=== PATIENT | female | born 1995 | race Hispanic/Latino ===

== ENCOUNTER 2017-12-28 09:54 | Outpatient (CLI) | payer BC, MEDICAID ==
--- NOTE | 2017-12-28 12:19 | Event Note ---
Date: 12/28/17 Presents with decreased FM. AKHIL and bpp are normal. d/c home with f/u in the office. Movement noted by RN in triage also.
--- NOTE | 2017-12-28 14:48 | Ultrasound Report ---
ULTRASOUND OB LIMITED History: Decreased movement Technique: Transabdominal ultrasound with Doppler interrogation. Gestation: Single Position: Cephalic Amniotic Fluid: Normal AKHIL = 16.8 cm Heart Rate: 143 BPM
--- NOTE | 2017-12-28 14:49 | Ultrasound Report ---
ULTRASOUND BIOPHYSICAL PROFILE: History: well being Technique: Transabdominal ultrasound with Doppler interrogation. 2 - breathing movements 2 - movements 2 - posture and tone 2 - Qualitative amniotic fluid volume 8 - TOTAL SCORE OF POSSIBLE 8 Heart Rate (bpm) 141
== END 2017-12-28 12:39 | disposition home or self-care (01) ==
LOC: TRG 09:54 → LD 09:55 → TRG 12:39
PROVIDERS: ATTEND Obstetrics & Gynecology
DX: O47.1 False labor at or after 37 completed weeks of gestation (principal); Z3A.39 39 weeks gestation of pregnancy
CPT/HCPCS: 59025; 76815; 76819

== ENCOUNTER 2017-12-28 21:28 | Inpatient (IN) | payer BC, MEDICAID ==
--- NOTE | 2017-12-28 22:18 | History and Physical Report ---
History of Present Illness Date of examination: 12/28/17 Date of admission: 12/28/17 21:53 Chief complaint: my water broke History of present illness: Pt seen earlier today for decreased FM. Pt had reassuring testing and sent home. Now pt presents with c/o SROm 1930pm with clear fluid noted. Pt also noted to be 4cm as per triage nurse. EDC Confirmation: 01/04/2018 Gestational Age: 8 weeks Past History : 1 Term Births: 0 Past Medical History: Reviewed history from 10/23/2014 and no changes required: Depression Bipolar Disease; patient stopped all meds after + test. Dr. Collins in [place] Past Surgical History: Reviewed history from 08/15/2010 and no changes required: Negative Past Surgical History Past Medical History Abnormal PAP: negative REAL Exposure: negative Infertility: negative Uterine Anomaly: negative Uterine Surgery (not C/S): negative Other Gynecologic Problems: negative Social Hx: Smoker no ETOH/Drugs Patient is single Infection History Hx of STD: chlamydia HIV Risk Eval: no Hepatitis B Risk Eval: low risk Personal hx. of genital herpes: no Partner hx. of genital herpes: no Rash, Viral, or Febrile illness since last LMP? no Varicella/Chicken Pox Status: Previous Disease Genetic History Congenital Heart Defect: Mom: no Dad: no Kian Disease: Mom: no Dad: no Thalassemia Mom: no Dad: no Neural Tube Defect Mom: no Dad: no Down's Syndrome Mom: no Dad: no Nelson-Sachs Mom: no Dad: no Sickle Cell Disease/Trait Mom: no Dad: no Hemophilia Mom: no Dad: no Muscular Dystrophy Mom: no Dad: no Cystic Fibrosis Mom: no Dad: no Loup Chorea Mom: no Dad: no Mental Retardation Mom: no Dad: no Fragile X Mom: no Dad: no Other Genetic/Chromosomal Disorder Mom: no Dad: no Child w/other defect Mom: no Dad: no Enviromental Exposures Xray Exposure: no Medication, drug, or alcohol use since LMP: no Chemical/Other Exposure: no Exposure to Cat Liter: no Hx of Parvovirus (Fifth Disease): no Occupational Exposure to Children: none Active Medications (reviewed today): XANAX () LAMICTAL () CELEXA () Current Allergies (reviewed today): * CODEINE (Critical) Past History Past Medical History: no pertinent history Past Surgical History: no surgical 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 Social history: no significant social history, - Obstetrical History Expected Date of Delivery: 01/04/18 Actual Gestation: 39 Week(s) 0 Day(s) : 1 Medications and Allergies Allergies Allergy/AdvReac Type Severity Reaction Status Date / Time No Known Allergies Allergy Unverified 12/28/17 10:12 Home Medications Medication Instructions Recorded Confirmed Last Taken Type Ranitidine HCl [Zantac 150 MG TAB] 300 mg PO 12/28/17 12/28/17 10:00 History Review of Systems All systems: negative - Vital Signs Vital signs: Vital Signs Temp Pulse Resp BP Pulse Ox 98.3 F 118 H 20 122/86 96 12/28/17 22:04 12/28/17 22:04 12/28/17 22:04 12/28/17 22:04 12/28/17 22:04 Temp Pulse Resp BP Pulse Ox 98.3 F 118 H 20 122/86 96 12/28/17 22:04 12/28/17 22:04 12/28/17 22:04 12/28/17 22:04 12/28/17 22:04 - Obstetrical FHR: auscultation normal Cervical Dilatation: 4 (grossly SROM as per triage nurse) Cervical Effacement Percentage: 70 Uterine Contraction Frequency (min): -1 Results All other labs normal. Assessment and Plan - Patient Problems (1) 39 weeks gestation of Current Visit: Yes Status: Acute (2) Active labor at term Current Visit: Yes Status: Acute Plan to address problem: -admit -bolus for epidural as pt desires one -pitocin if needed -gbs negative (3) SROM (spontaneous rupture of membranes) Current Visit: Yes Status: Acute Plan to address problem: -admit -bolus for epidural as pt desires one -pitocin if needed -gbs negative
[2017-12-28] MEDS ORDERED: BRETHINE SUB-Q PRN ×2 (22:25→22:28)
[2017-12-28] MEDS ORDERED: ePHEDrine SULFATE IV PRN (22:25)
[2017-12-28] MEDS ORDERED: XYLOCAINE 2% INFILTRATI ONE ×2 (22:25→22:28)
[2017-12-28] MEDS ORDERED: SUBLIMAZE IV PRN (22:25)
[2017-12-28] MEDS ORDERED: BRETHINE IVP PRN (22:25)
[2017-12-28] MEDS ORDERED: MINERAL OIL PO PRN (22:25)
[2017-12-28] MEDS ORDERED: LACTATED RINGERS 1,000 ML ONE (22:26)
[2017-12-28 22:54] LABS: Hematocrit 37.4 % (30.3-42.9); Hemoglobin 12.6 gm/dl (10.1-14.3); Mean Corpuscular HGB Conc 34 % (30-34); Mean Corpuscular Hemoglobin 28 pg (28-32); Mean Corpuscular Volume 82 fl (79-97); Platelet Count 268 K/mm3 (140-440); Red Blood Count 4.55 M/mm3 (3.65-5.03); Red Cell Distribution Width 13.1 % (13.2-15.2)
[2017-12-28] MEDS ORDERED: PITOCin/NS 20 UNIT/1000ML DRIP 20 UNITS/1,000 ML BAG IV SCH (23:00)
[2017-12-28] MEDS ORDERED: PITOCin/NS 30 UNIT/500ML 30 UNITS/500 ML BAG IV SCH ×2 (23:00)
[2017-12-28] MEDS ORDERED: LACTATED RINGERS 1,000 ML IV SCH (23:00)
[2017-12-28] MEDS: LACTATED RINGERS 1,000 ML IV SCH ×2 (23:09→23:14)
[2017-12-29] MEDS ORDERED: NARCAN 2 MG/2 ML IV PRN (00:34)
[2017-12-29] MEDS ORDERED: ePHEDrine SULFATE IV PRN (00:34)
[2017-12-29] MEDS ORDERED: fentaNYL-BUPIV 2 MCG/ML-0.125% 200 MCG/100 ML BAG EPIDURAL SCH (01:00)
[2017-12-29] MEDS ORDERED: LACTATED RINGERS 1,000 ML IV SCH (01:00)
--- NOTE | 2017-12-29 05:43 | Progress Note ---
Assessment and Plan Pt reassured Will get epidural redosed Anesthesia called Continue pit @ 4mu Ctx Q2 FHR Cat 1. Anticipate delivery. Subjective - Subjective Date of service: 12/29/17 (pt called out c/o pressure) Principal diagnosis: IUP @ 39w1d with SROM; Patient reports: movement normal Objective - Vital Signs Vital Signs: Vital Signs - 12hr 12/28/17 12/29/17 22:04 00:45 Temperature 98.3 F Pulse Rate 118 H Respiratory 20 18 Rate Blood Pressure 140/72 Blood Pressure 122/86 [Right] O2 Sat by Pulse 96 Oximetry - Exam Breasts: deferred Cardiovascular: Regular rate Lungs: Normal air movement Abdomen: Present: normal appearance, soft. Absent: distention, tenderness Uterus: Present: normal FHR: auscultation normal, category 1 Uterine Contraction Monitor Mode: External Cervical Dilatation: 8.5 Cervical Effacement Percentage: 100 station: 0 Uterine Contraction Pattern: Regular Uterine Tone Measurement Phase: Resting Uterine Contraction Intensity: Moderate Extremities: normal Deep Tendon Reflex Grade: Normal +2 - Labs Labs: Abnormal Labs 12/28/17 22:38 RDW 13.1 L Laboratory Results - last 24 hr 12/28/17 12/28/17 22:38 22:38 WBC 10.3 RBC 4.55 Hgb 12.6 Hct 37.4 MCV 82 MCH 28 MCHC 34 RDW 13.1 L Plt Count 268 Blood Type B POSITIVE Antibody Screen Negative
[2017-12-29] MEDS ORDERED: ZOFRAN IV PRN (07:11)
[2017-12-29] MEDS ORDERED: BENADRYL PO PRN (07:11)
[2017-12-29] MEDS ORDERED: TUCKS PAD TP PRN (07:11)
[2017-12-29] MEDS ORDERED: MILK OF MAGNESIA PO PRN (07:11)
[2017-12-29] MEDS ORDERED: LANSINOH TP PRN (07:11)
[2017-12-29] MEDS ORDERED: DULCOLAX PR PRN (07:11)
[2017-12-29] MEDS ORDERED: PHENERGAN PO PRN (07:11)
[2017-12-29] MEDS ORDERED: TYLENOL PO PRN (07:11)
[2017-12-29] MEDS ORDERED: NORCO 5/325 PO PRN (07:11)
--- NOTE | 2017-12-29 07:18 | Procedure Note ---
OB Delivery Note - Delivery Date of Delivery: 12/29/17 Newspaper Subscription Solicitor: GERSON GUNDERSON Estimated blood loss: 300cc - Vaginal Delivery presentation: vertex Delivery position: OA Intrapartum events: none Delivery augmentation: rupture of membranes Delivery monitor: external FHT, external uterine Route of delivery: Delivery placenta: spontaneous Delivery cord: nuchal cord Delivery laceration: 1st degree (right labial tear No repair) Anesthesia: epidural Delivery comments: live born male over intact perineum Baby to mom's abdomen skin to skin Placenta and membrane delivered complete and intact. 3 vessel cord. Pitocin IVFs. 8/9, EBL 300, Wgt 7-6. Mom and baby remain LDR stable - Infant A at 1 minute: 8 at 5 minutes: 9 Infant Gender: Male (wgt 7-6)
[2017-12-29] MEDS ORDERED: SODIUM CHLORIDE FLUSH SYRINGE 10 ML IV NR (08:00)
[2017-12-29] MEDS: MOTRIN PO SCH ×2 (14:00→21:13)
[2017-12-29 19:27] LABS: Hematocrit 30.4 % (30.3-42.9); Hemoglobin 9.9 gm/dl (10.1-14.3)
[2017-12-29] MEDS ORDERED: DERMOPLAST TP PRN (21:14)
[2017-12-30] MEDS: MOTRIN PO SCH (06:13)
[2017-12-30] MEDS ORDERED: BOOSTRIX IM ONE (07:11)
[2017-12-30] MEDS ORDERED: M-M-R II VACCINE SUB-Q ONE (07:11)
--- NOTE | 2017-12-30 08:19 | Discharge Summary ---
Providers - Providers Date of Admission: 12/28/17 21:53 Date of discharge: 12/30/17 (request d/c home) Attending physician: MARCIA NICHOLS Primary care physician: MARCIA NICHOLS Hospitalization Reason for admission: Labor Condition: Good Pertinent studies: post del H&H 9.930.4 Procedures: vaginal delivery Hospital course: uncomplicated vaginal delivery and course Disposition: DC- TO HOME OR SELFCARE - Discharge Diagnoses (1) Spontaneous vaginal delivery Status: Acute Core Measure Documentation - Palliative Care Palliative Care/ Comfort Measures: Not Applicable - Core Measures Any of the following diagnoses?: none Exam - Constitutional Vitals: Temp Pulse Resp BP Pulse Ox 98.3 F 98 H 18 121/72 97 12/29/17 23:40 12/29/17 23:40 12/29/17 23:40 12/29/17 23:40 12/29/17 23:40 General appearance: Present: no acute distress, well-nourished - EENT Eyes: Present: PERRL ENT: hearing intact, clear oral mucosa - Neck Neck: Present: supple, normal ROM - Respiratory Respiratory effort: normal Respiratory: bilateral: CTA - Cardiovascular Heart Sounds: Present: S1 & S2. Absent: rub, click - Extremities Extremities: pulses symmetrical, No edema Peripheral Pulses: within normal limits - Abdominal General gastrointestinal: Present: soft, non-tender, non-distended, normal bowel sounds Female genitourinary: Present: normal - Integumentary Integumentary: Present: clear, warm, dry - Musculoskeletal Musculoskeletal: gait normal, strength equal bilaterally - Psychiatric Psychiatric: appropriate mood/affect, intact judgment & insight - Neurologic Neurologic: CNII-XII intact, moves all extremities - Additional findings Additional findings: lochia scant, fundus firm, VSSAF, Plan Activity: no restrictions Diet: regular Follow up with: MARCIA NICHOLS MD [Primary Care Provider] - 7 Days (Congratulations! Please call [phone] to schedule your son's circumcision in 1 week and your visit in 4 weeks. Bring EMLA cream to your son's appointment and await further instruction. Call for any questions or concerns.) Prescriptions: Ibuprofen [Motrin 800 MG tab] 800 mg PO Q8HR PRN #30 tablet PRN Reason: Pain Lidocain2.5%/Prilocai2.5% [Emla] 5 gm TP ONCE PRN #1 tube PRN Reason: Pain
[2017-12-30 19:13] VITALS: BP 111/73
== END 2017-12-30 16:30 | disposition home or self-care (01) | DRG 775 ==
LOC: TRG 21:28 → LD 21:33 → TRG 21:52 → LD 21:53 → OB 12-29 10:30
PROVIDERS: ADMIT Obstetrics & Gynecology; ATTEND Obstetrics & Gynecology
PROC: 10E0XZZ Delivery of Products of Conception, External Approach (ICD-10-PCS; principal; 2017-12-29)
PROC: 3E0R3BZ Introduction of Anesthetic Agent into Spinal Canal, Percutaneous Approach (ICD-10-PCS; 2017-12-29)
PROC: 00HU33Z Insertion of Infusion Device into Spinal Canal, Percutaneous Approach (ICD-10-PCS; 2017-12-29)
PROC: 3E0234Z Introduction of Serum, Toxoid and Vaccine into Muscle, Percutaneous Approach (ICD-10-PCS; 2017-12-30)
DX: O69.81X0 Labor and delivery complicated by cord around neck, without compression, not applicable or unspecified (principal); Z3A.39 39 weeks gestation of pregnancy; Z37.0 Single live birth; Z23 Encounter for immunization; Z88.5 Allergy status to narcotic agent; O70.0 First degree perineal laceration during delivery; O99.344 Other mental disorders complicating childbirth; F31.9 Bipolar disorder, unspecified
CPT/HCPCS: 36415; 85014; 85018; 85027; 86592; 86850; 86900; 86901; 99211; G0463; J2590; J7120